=== PATIENT | male | born 1980 | race Two or more races ===

== ENCOUNTER → 2023-08-16 | Outpatient (REF) | payer OTHER | LOC: M SFHCDERM 13:20 | PROVIDERS: ATTEND Physician Assistant | DX: D48.9 Neoplasm of uncertain behavior, unspecified (principal); C44.91 Basal cell carcinoma of skin, unspecified ==

== ENCOUNTER → 2024-02-15 | Outpatient (REF) | payer OTHER | LOC: M SFHCDERM 07:16 | PROVIDERS: ATTEND Dermatology | DX: D04.22 Carcinoma in situ of skin of left ear and external auricular canal (principal) ==